=== PATIENT | male | born 1965 | race Two or more races ===

== ENCOUNTER 2018-02-23 14:41 | Emergency (ER) | payer OTHER ==
[~2018-02-23] VITALS: Ht 180.3 cm; Wt 70.8 kg
== END 2018-02-23 19:26 | disposition home or self-care (01) ==
LOC: ER 14:41
DX: N13.2 Hydronephrosis with renal and ureteral calculous obstruction (principal); R16.0 Hepatomegaly, not elsewhere classified; R31.29 Other microscopic hematuria; R10.32 Left lower quadrant pain